=== PATIENT | female | born 1960 | race Caucasian/White ===

== ENCOUNTER → 2022-04-11 | Outpatient (CLI) | payer BC ==
--- NOTE | 2022-04-14 08:24 | MM ---
Reason for Exam: Screening (asymptomatic). Last mammogram was performed 1 year(s) and 1 month(s) ago. Patient History: Menarche at age 13. First Full-Term at age 31. Postmenopausal. Patient has history of breast feeding. Risk Values: Filomena 5 year model risk: 1.7%. NCI Lifetime model risk: 9.1%. Prior Study Comparison: 08/17/2013 Bilateral Screening Mammogram, [facility]. 08/19/2013 Left Diagnostic Mammogram, [facility]. 08/21/2014 Bilateral Screening Mammogram, [facility]. 03/02/2020 Bilateral MG 3D screening mammo w/cad, [place]. 03/05/2021 Bilateral MG 3D screening mammo w/cad, [place]. Tissue Density: There are scattered fibroglandular densities. Findings: Analyzed By CAD. There is no suspicious group of microcalcifications or new suspicious mass in either breast. Overall Assessment: Negative, BI-RAD 1 Management: Screening Mammogram of both breasts in 1 year. A clinical breast exam by your physician is recommended on an annual basis and results should be correlated with mammographic findings. Electronically signed and approved by: Troy Bach M.D.
== END | disposition home or self-care (01) ==
LOC: RADMAMWWP 09:58
PROVIDERS: ATTEND Family Medicine
DX: Z12.31 Encounter for screening mammogram for malignant neoplasm of breast (principal); Z78.0 Asymptomatic menopausal state
CPT/HCPCS: 77063; 77067

== ENCOUNTER 2022-12-12 08:38 | Day surgery (SDC) | payer BC ==
[2022-12-12 09:11] VITALS: TEMP 97.9
[2022-12-12] MEDS ORDERED: LACTATED RINGERS 1,000 ML IV ONE (09:11)
[2022-12-12] MEDS ORDERED: NA PHOS,M-B/NA PHOS,DI-BA 133 ML ENEMA RECTAL ONE ×2 (09:42→09:48)
[2022-12-12] MEDS ORDERED: PROPOFOL 10 MG/ML 20 ML VIAL IV ONE (10:24)
--- NOTE | 2022-12-12 10:48 | P.PCN ---
Date of Procedure: 12/12/22 Procedure(s) Performed: BRIEF HISTORY: Patient is a 62-year-old pleasant white female scheduled for an elective colonoscopy as a part of screening for colon cancer. Her last colonoscopy was 10 years ago. PROCEDURE PERFORMED: Colonoscopy with snare polypectomy. PREOPERATIVE DIAGNOSIS: screening for colon cancer. IV sedation per Anesthesia. PROCEDURE: After informed consent was obtained, the patient, was brought into the endoscopy unit. IV sedation was administered by Anesthesia under continuous monitoring. Digital rectal examination was normal. Initially the Olympus CF-160 flexible video colonoscope was then inserted in the rectum, gradually advanced into the cecum without any difficulty. Careful examination was performed as the scope was gradually being withdrawn. Ileocecal valve and the appendiceal orifice were visualized and appeared normal. Prep was fair. Mucosa of the cecum, ascending colon, appeared normal. In the transverse colon there was a 5 limited polyp that was removed by snare polypectomy. Rest of the transverse colon, descending colon, sigmoid colon, and rectum appeared normal.in the proximal rectum there was a 7 mm polyp removed by snare polypectomy. Retroflexion was performed in the rectum and no lesions were seen. The patient tolerated the procedure well. IMPRESSION: 5 mm transverse colon polyp status post snare polypectomy 7 mm proximal rectal polyp status post snare polypectomy RECOMMENDATIONS: Findings of this examination were discussed with the patient as well as her family..she was advised to follow with the biopsy results. If the biopsy reveals adenoma she can have a repeat colonoscopy in 5 years.
[2022-12-12 11:17] VITALS: BP 142/67; PULSE 58; RESP 20
== END 2022-12-12 11:37 ==
LOC: ORWHC2ENDO 08:38
PROVIDERS: ATTEND Internal Medicine Gastroenterology
DX: Z12.11 Encounter for screening for malignant neoplasm of colon (principal); D12.3 Benign neoplasm of transverse colon; D12.8 Benign neoplasm of rectum; I10 Essential (primary) hypertension; I25.10 Atherosclerotic heart disease of native coronary artery without angina pectoris; E78.5 Hyperlipidemia, unspecified; E07.9 Disorder of thyroid, unspecified; F32.A Depression, unspecified; K21.9 Gastro-esophageal reflux disease without esophagitis; Z79.82 Long term (current) use of aspirin; Z79.890 Hormone replacement therapy; Z79.899 Other long term (current) drug therapy; Z98.890 Other specified postprocedural states
CPT/HCPCS: 88305; 45385; J2704

== ENCOUNTER → 2023-06-02 | Outpatient (CLI) | payer MEDICARE, BC ==
--- NOTE | 2023-06-03 08:52 | MM ---
Reason for Exam: Screening (asymptomatic). Last mammogram was performed 1 year(s) and 2 month(s) ago. Patient History: Menarche at age 13. First Full-Term at age 31. Postmenopausal. Patient has history of breast feeding. Risk Values: Filomena 5 year model risk: 1.8%. NCI Lifetime model risk: 8.6%. Prior Study Comparison: 03/02/2020 Bilateral MG 3D screening mammo w/cad, [place]. 03/05/2021 Bilateral MG 3D screening mammo w/cad, [place]. 04/11/2022 Bilateral MG 3D screening mammo w/cad, [facility]. Tissue Density: There are scattered fibroglandular densities. Findings: Analyzed By CAD. There is no suspicious group of microcalcifications or new suspicious mass in either breast. Overall Assessment: Benign, BI-RAD 2 Management: Screening Mammogram of both breasts in 1 year. . Patient should continue monthly self-breast exams. A clinical breast exam by your physician is recommended on an annual basis. This exam should not preclude additional follow-up of suspicious palpable abnormalities. Note on Filomena scores and lifetime risk: 1. A Filomena score greater than 3% is considered moderate risk. If this is the case, consider specialist referral to assess eligibility for a risk reducing agent. 2. If overall lifetime risk for the development of breast cancer is 20% or higher, the patient may qualify for future screening with alternating mammogram and breast MRI. Electronically signed and approved by: Shantanu Bazzi M.D. Radiologis
== END | disposition home or self-care (01) ==
LOC: RADMAMWWP 10:42
PROVIDERS: ATTEND Family Medicine
DX: Z12.31 Encounter for screening mammogram for malignant neoplasm of breast (principal); Z78.0 Asymptomatic menopausal state
CPT/HCPCS: 77063; 77067

== ENCOUNTER → 2023-06-24 | Outpatient (CLI) | payer BC, MEDICARE ==
[2023-06-24 17:04] LABS: HCT 40.3 % (37.2-46.3); HGB 13.2 g/dL (12.0-15.0); MCH 30.5 pg (27.0-32.0); MCHC 32.8 g/dL (32.0-37.0); MCV 93.1 FL (80.0-97.0); Mean Platelet Volume 11.5 FL (9.5-12.2); NRBC Per 100 WBC 0.03 X 10*3/uL (0.00-0.01); Platelet Count 338 X 10*3/uL (140-440); RBC 4.33 X 10*6/uL (4.10-5.20); RDW 11.9 % (11.5-14.5); WBC 8.32 X 10*3/uL (4.50-10.00)
[2023-06-24 17:08] LABS: Blood Urea Nitrogen 13.9 mg/dL (9.0-27.0); Carbon Dioxide 27.5 mmol/L (21.6-31.8); Chloride 104 mmol/L (96-109); Potassium 4.6 mmol/L (3.5-5.5); Sodium 140 mmol/L (135-145)
== END | disposition home or self-care (01) ==
LOC: LABPAT 11:00
PROVIDERS: ATTEND Internal Medicine Interventional Cardiology
DX: Z01.812 Encounter for preprocedural laboratory examination (principal); I25.718 Atherosclerosis of autologous vein coronary artery bypass graft(s) with other forms of angina pectoris
CPT/HCPCS: 80051; 82565; 84520; 85027

== ENCOUNTER 2023-07-02 05:58 | Day surgery (SDC) | payer BC, MEDICARE ==
[~2023-07-02 05:58] MED LIST: ALPRAZolam 0.25 MG TAB PO PRN; ALPRAZolam 0.5 MG TAB PO PRN; HEPARIN SODIUM,PORCINE (1 ML) 2,500 UNIT in SODIUM CHLORIDE 0.9% 250 ML IRRIGATION PRN; HEPARIN SODIUM,PORCINE 10,000 UNIT in SODIUM CHLORIDE 0.9% 1,000 ML IRRIGATION PRN; NITROGLYCERIN SL TABS 0.4 MG TAB SUBLINGUAL PRN
[2023-07-02] MEDS: SODIUM CHLORIDE 0.9% 1,000 ML IV ONE (06:43)
[2023-07-02] MEDS ORDERED: fentaNYL (PF) 50 MCG/ML 2 ML AMP ONE (07:12)
[2023-07-02] MEDS ORDERED: LIDOCAINE 1% INJ 10MG/ML (20 ML MDV) ONE (07:12)
[2023-07-02] MEDS ORDERED: HEPARIN SODIUM 1,000 UN/ML (10ML VL) ONE (07:12)
[2023-07-02] MEDS ORDERED: VERAPAMIL 2.5 MG/ML 2 ML AMP ONE (07:12)
[2023-07-02] MEDS: fentaNYL (PF) 50 MCG/1 ML VIAL IVP ONE (07:35)
[2023-07-02] MEDS: HEPARIN SODIUM 1,000 UN/ML (10ML VL) IVP ONE ×4 (07:47→09:00)
[2023-07-02] MEDS ORDERED: CLOPIDOGREL 75 MG TAB ONE (08:04)
[2023-07-02] MEDS: CLOPIDOGREL 75 MG TAB PO ONE (08:05)
[2023-07-02] MEDS: IOPAMIDOL-370 100ML BTL INTRATHECA ONE ×2 (08:56→08:57)
[2023-07-02] MEDS: VERAPAMIL 2.5 MG/ML 4 ML VIAL INTRAARTER ONE (08:57)
[2023-07-02] MEDS ORDERED: MAG HYDROX/AL HYDROX/SIMETH 30 ML CUP PO PRN (09:10)
[2023-07-02] MEDS ORDERED: RX INFO: IV CONTRAST WAS GIVEN 1 EACH MISC MISCELLANE PRN (09:10)
[2023-07-02] MEDS ORDERED: NITROGLYCERIN SL TABS 0.4 MG TAB SUBLINGUAL PRN (09:10)
[2023-07-02] MEDS ORDERED: ATROPINE SULFATE 0.1 MG/ML 10ML SYRINGE IV PRN (09:10)
[2023-07-02] MEDS ORDERED: ZOLPIDEM 5 MG TAB PO PRN (09:10)
[2023-07-02] MEDS ORDERED: NON FORMULARY DRUG (Evolocumab [Repatha Sureclick] 140 MG/ML Each) SQ SCH (09:15)
--- NOTE | 2023-07-02 09:22 | P.CARDCATH ---
Date of Procedure: 07/02/23 Description of Procedure: Cardiac Catheterization: The patient is a 63-year-old female status post stenting of the proximal RCA in 2012 and CABG in 2020 who presented with symptoms of chest discomfort with physical activity consistent with her prior angina. Recommendations were made regarding cardiac catheterization, the risks and the complications were discussed with the patient who is in full understanding and agreement. Procedure Description: Patient was brought to recyclable materials collector in fasting semi-sedated state after receiving Fentanyl and Benadryl achieiving moderate conscious sedated state. Using Xylocaine Anesthesia and modified Seldinger technique, a 6-Guamanian sheath was introduced in the left radial artery . Subsequently, selective coronary angiography was performed using a 5-Guamanian 4 bend Lisa catheter. Multiple views of the coronary artery including hemiaxial views were obtained. The right Lisa was used to cannulate the saphenous vein graft to the diagonal branch and to the RCA and ROSARIO to the LAD. Images of the graft were performed. The right Lisa catheter was used to cross the aortic valve and LVEDP was calculated. PCI: After removing the catheters a 6 Guamanian CLS 3.5 guiding catheter was introduced and after cannulating the left main 0.014 BMW J-wire was advanced across the proximal lesion. A 2.5 x 12 mm trek balloon was advanced and 1 inflation proximally at 8 elisa was done. Subsequently a Corsair microcatheter with a 0.014 BMW J-wire that was exchanged subsequently to a whisper 0.014 J-wire were unsuccessful in crossing the distal chronic total occlusion. Subsequently the wire was exchanged back to the BMW J-wire and the Corsair was removed. A 3.25 x 23 mm Xience urmila point stent was deployed in the proximal LAD at 16 elisa. A Anesco eye IVUS catheter was advanced and images were obtained. Subsequently a 3.5 x 20 mm NC trek balloon was advanced and 1 inflation at 10 elisa was done. After removing the balloon a 3.5 x 12 mm Xience stent was deployed proximal to the first 1 and in the distal left main at 16 elisa. Repeat IVUS imaging was performed. After removing the catheter a 4.0 x 8 mm NC trek balloon was advanced and 1 inflation in the proximal segment of the stent was performed at 8 elisa. Subsequently the wire was removed images were obtained and revealed stable successful stenting. The flow through the left circumflex was brisk. Following that, catheter and sheath were removed. Hemostasis was obtained with deployment of vascular band . There was no immediate complication. Patient was returned to room in stable condition. Of note, the patient received a total of 8500 units of intravenous heparin as well as intra-arterial verap darwin. She received an oral loading dose of clopidogrel. Her ACT was followed. She has chest discomfort that resolved at the end of the procedure. She had no significant EKG changes. Findings: Left main: This is a large size vessel, bifurcating into LAD and left circumflex, left main has no evidence of high-grade stenosis. LAD: This vessel has a long tubular lesion with a area of stenosis up to 85 to 90% at the takeoff of the first septal dowel pointer subsequently the vessel is totally occluded with no antegrade flow in the mid distal segment and what appeared the side of the anastomotic ROSARIO. No antegrade flow was noted. Left circumflex: This is a nondominant vessel, large in caliber, giving rise to 2 obtuse marginal branch. After the takeoff of the second obtuse marginal branch the third and fourth obtuse marginal branch are very small in caliber and have diffuse intimal disease. The proximal left circumflex has 20 to 30% plaque with no high-grade stenosis RCA: This is a large dominant vessel bifurcating into PDA and PLV the stented segment proximally is patent there is intimal disease in the mid segment of 20 to 30%. The PDA has competitive flow through the graft and has intimal disease at the bifurcation. ROSARIO to the LAD this vessel is occluded proximally with no antegrade flow SVG to the diagonal branch: The proximal and distal anastomotic site are patent, flow into the diagonal branch is brisk there is no evidence of obstructive disease. SVG to the PDA: The proximal and distal anastomotic site are patent the flow into the PDA is brisk. Left Ventriculogram: Not performed Hemodynamics: There was no gradient across the aortic valve , LVEDP was 15-18 mmHg Conclusion: 1. Chronically occluded mid distal LAD with severe stenosis in the proximal LAD 2. Mild disease in the left circumflex 3. Patent stent in the proximal RCA with moderate disease in the distal RCA 4. Patent SVG to the diagonal branch and to the RCA 5. Occluded ROSARIO to the LAD 6. Successful stenting of the proximal LAD and distal left main with reduction of stenosis from 85% to less than 5% with IVUS imaging Recommendations: The patient will continue on aspirin and clopidogrel without any interruption for 6 months in addition to aggressive coronary risks modification and maintaining LDL below 70 mg/dL. If she continues to have symptoms then she will be evaluated to undergo revascularization of the chronically occluded distal LAD. The findings and the recommendations were discussed with the patient and the family and they were in full understanding and agreement. Duration of sedation is 81 minutes.
[2023-07-02] MEDS: SODIUM CHLORIDE 0.9% 1,000 ML in EMPTY BAG 1 BAG IV SCH ×2 (14:23)
[2023-07-02] MEDS: ASPIRIN 325 MG TAB PO STA (14:23)
[2023-07-02 15:44] VITALS: BMI 33.0
[2023-07-02] MEDS: CITALOPRAM HYDROBROMIDE 20 MG TAB PO SCH (20:12)
[2023-07-02] MEDS: METOPROLOL TARTRATE 12.5 MG TAB PO SCH (20:12)
[2023-07-03] MEDS: LEVOTHYROXINE 100 MCG TAB PO SCH (05:46)
[2023-07-03 06:41] LABS: African American GFR (CKD) >90 (>60 ml/min/1.73 sqM); Anion Gap 5 mmol/L; Blood Urea Nitrogen 16 mg/dL (7-17); Calcium 9.2 mg/dL (8.4-10.2); Carbon Dioxide 25 mmol/L (22-30); Chloride 108 mmol/L (98-107); Glucose 103 mg/dL (74-99); Non-African American GFR(CKD) 80 (>60 ml/min/1.73 sqM); Potassium 4.3 mmol/L (3.5-5.1); Sodium 138 mmol/L (137-145)
--- NOTE | 2023-07-03 07:23 | P.PN ---
Subjective Progress Note Date: 07/03/23 PROGRESS NOTE The patient is a 63-year-old female with a known history of CAD status post PCI and CABG who presented with symptoms of chest discomfort and underwent cardiac catheterization, was found to have occluded ROSARIO to the LAD with chronic total occlusion of the mid and distal LAD. She underwent stenting of the proximal LAD. She is feeling well this morning. She denies any chest discomfort, diz ziness, palpitations. She is in sinus mechanism ambulating without difficulties. Medications: Aspirin, citalopram 20 mg daily, Plavix 75 mg daily, isosorbide 30 mg daily, metoprolol 12.5 mg twice a day, Ditropan, levothyroxine PHYSICAL EXAMINATION: Blood pressure 118/50 heart rate 70 LUNGS: Clear to auscultation HEART: Regular rate and rhythm, S1, S2. No S3. Systolic ejection murmur ABDOMEN: Soft, nontender, no organomegaly EXTREMETIES: No edema, right radial pulse intact LAB: BUN 16, creatinine 1.8 IMPRESSION: 1. Status post stenting of the proximal LAD with chronic total occlusion of the mid and distal LAD 2. Patent SVG to the diagonal branch and the PDA 3. History of hyperlipidemia 4. Prior history of CABG and PCI PLAN: 1. Continue medical therapy 2. Increase physical activity 3. Discharge home today 4. If she has further symptoms consider PCI of the [employer] mid and distal LAD. The patient had a fixed apical defect on her nuclear scan. Objective - Vital Signs Vital signs: Vital Signs Temp 97.8 F 07/03/23 02:00 Pulse 77 07/03/23 02:00 Resp 16 07/03/23 02:00 BP 118/55 07/03/23 02:00 Pulse Ox 98 07/03/23 02:00 FiO2 Intake & Output 07/02/23 07/03/23 07/03/23 18:59 06:59 18:59 Intake Total 800 Output Total 1 2 Balance 799 -2 Weight 84.6 kg 84.6 kg Intake: IV 800 Output: Stool 1 2 Other: Voiding Method Toilet Toilet # Voids 3 2 - Labs CBC & Chem 7: 07/03/23 05:32 Labs: Abnormal Lab Results - Last 24 Hours (Table) 07/03/23 Range/Units 05:32 Chloride 108 H (98-107) mmol/L Glucose 103 H (74-99) mg/dL
[2023-07-03] MEDS: ASPIRIN 81 MG PO SCH (08:03)
[2023-07-03] MEDS: OXYBUTYNIN XL 5 MG TAB.ER.24 PO SCH (08:03)
[2023-07-03] MEDS: LIOTHYRONINE SODIUM 5 MCG TAB PO SCH (08:03)
[2023-07-03] MEDS: ISOSORBIDE MONONITRATE ER 30 MG TAB.ER.24H PO SCH (08:03)
[2023-07-03] MEDS: CLOPIDOGREL 75 MG TAB PO SCH (08:04)
[2023-07-03 08:19] VITALS: BP 133/71; PULSE 67; RESP 18; TEMP 96
== END 2023-07-03 09:27 | disposition home or self-care (01) ==
LOC: CATHCVL 05:58 → 6NMEDSUR 08:55 → CATHCVL 07-03 09:27
PROVIDERS: ATTEND Internal Medicine Interventional Cardiology
DX: I25.10 Atherosclerotic heart disease of native coronary artery without angina pectoris (principal); E78.5 Hyperlipidemia, unspecified; I25.82 Chronic total occlusion of coronary artery; I10 Essential (primary) hypertension; Z79.02 Long term (current) use of antithrombotics/antiplatelets; Z79.82 Long term (current) use of aspirin; Z79.899 Other long term (current) drug therapy; Z95.1 Presence of aortocoronary bypass graft; Z95.5 Presence of coronary angioplasty implant and graft
CPT/HCPCS: 92978; 93459; 80048; 99152; 99153 ×4; C9600; C1769 ×6; C1887; C1894; C1753; C1874 ×2; C1751; C1725 ×3; J1644; Q9967; J3010